=== PATIENT | male | born 1975 | race Two or more races ===

== ENCOUNTER 2019-07-31 07:00 | Day surgery (SDC) | payer OTHER ==
[~2019-07-31 07:00] MED LIST: ADVAIR 2501 DISK W/1 IH; AMBIEN10 MG PO; CLONAZEPAM0.5 MG PO; EFFEXOR XR37.5 MG PO; PERCOCET 5/3251 TAB PO; PROVENTIL HFA6.7 GM IH; RECTICARE30 GM TP; SINGULAIR10 MG PO; ZYRTEC10 M3 PO
== END 2019-07-31 15:00 | disposition home or self-care (01) ==
LOC: AMB-ENDOS 07:00
DX: K64.8 Other hemorrhoids (principal); Z12.11 Encounter for screening for malignant neoplasm of colon

== ENCOUNTER 2025-05-13 08:48 | Day surgery (SDC) | payer OTHER ==
[2025-05-08 09:17] VITALS: BP 140/90
[~2025-05-13] VITALS: Ht 167.6 cm; Wt 95.3 kg
[~2025-05-13 08:48] MED LIST changes: +COZAAR50 MG PO
[2025-05-13] MEDS ORDERED: LIDOCAINE HCL 1%/EPINEPHRINE 20ML VIAL IJ ONE (12:45)
[2025-05-13] MEDS ORDERED: METRONIDAZOLE/SODIUM CHLORIDE 500 MG/100 ML PIGGYBACK IV SCH (12:45)
[2025-05-13] MEDS ORDERED: CEFTRIAXONE SODIUM 2,000 MG VIAL IV SCH (12:45)
[2025-05-13] MEDS ORDERED: HEMOSTATIC MATRIX 1 KIT KIT TOP ONE (12:45)
[2025-05-13] MEDS ORDERED: POVIDONE-IODINE 118 ML BOTT TOP ONE (12:45)
[2025-05-13] MEDS ORDERED: DIBUCAINE 30 GM TUBE RECTAL ONE (12:45)
[2025-05-13] MEDS ORDERED: BUPIVACAINE HCL 30 ML VIAL IJ ONE (12:45)
[2025-05-13] MEDS ORDERED: INTESTINEX680 M1 PO (14:51)
[2025-05-13] MEDS ORDERED: PERCOCET 5-3251 EACH PO (14:52)
[2025-05-13] MEDS ORDERED: DERMOPLAST PAIN78 GM TOP (14:52)
[2025-05-13] MEDS ORDERED: NEURONTIN300 MG PO (14:52)
== END 2025-05-13 18:30 | disposition home or self-care (01) ==
LOC: CIR.AMB 08:48
PROVIDERS: ATTEND Surgery
DX: K64.2 Third degree hemorrhoids (principal); K64.4 Residual hemorrhoidal skin tags; K62.5 Hemorrhage of anus and rectum; Z88.6 Allergy status to analgesic agent